=== PATIENT | female | born 1950 | race Caucasian/White ===

== ENCOUNTER 2016-08-16 08:46 | Emergency (ER) | payer MEDICARE, OTHER ==
[~2016-08-16] VITALS: Ht 152.4 cm; Wt 71.8 kg
[2016-08-16 08:57] VITALS: Ht 152.4 cm; Wt 71.8 kg
--- NOTE | 2016-08-16 09:23 | RADRPT ---
PROCEDURE: XR Chest. CLINICAL INDICATION: Trauma, pain TECHNIQUE: Single frontal chest x-ray. COMPARISON: None. FINDINGS: No acute infiltrate, pleural effusion or pneumothorax is identified. Cardiomediastinal silhouette i s within normal limits. Aortic atherosclerotic calcification is noted. The osseous structures are remarkable for degenerative spondylosis of the spine. IMPRESSION: 1. No evidence of acute cardiopulmonary process. 2. Aortic atherosclerosis. RPTAT: EE .Manjit Álvarez MD, MD Date Time Electronically viewed and signed by .Manjit Álvarez MD, on 08/16/2016 09:22 .R/
[2016-08-16] MEDS ORDERED: METO-448 PO (09:25)
[2016-08-16 09:53] LABS: BASOPHILS % 0.4 % (0.0-2.0); EOSINOPHILS # 0.1 10^3/ul (0.0-0.5); EOSINOPHILS % 1.8 % (0.0-7.0); HEMATOCRIT 33.2 % (37.0-47.0); HEMOGLOBIN 11.4 g/dl (12.0-16.0); LYMPHOCYTES # 1.4 10^3/ul (0.8-2.9); LYMPHOCYTES % 27.6 % (15.0-51.0); MEAN CORPUSCULAR HEMOGLOBIN 32.1 pg (29.0-33.0); MEAN CORPUSCULAR HGB CONC 34.3 g/dl (32.0-37.0); MEAN CORPUSCULAR VOLUME 93.6 fl (82.0-101.0); MEAN PLATELET VOLUME 7.2 fl (7.4-10.4); MONOCYTE # 0.5 10^3/ul (0.3-0.9); MONOCYTES % 10.1 % (0.0-11.0); NEUTROPHILS % 60.1 % (39.0-77.0); PLATELET COUNT 214 10^3/UL (140-440); RED BLOOD COUNT 3.55 10^6/ul (4.20-5.40); RED CELL DISTRIBUTION WIDTH 13.4 % (11.5-14.5); UNCORRECTED WBC 5.1 10^3/ul (4.8-10.8); WHITE BLOOD COUNT 5.1 10^3/ul (4.8-10.8)
[2016-08-16 10:03] LABS: CONDITION 1
[2016-08-16 10:05] LABS: CREATININE 5.11 mg/dl (0.44-1.00)
[2016-08-16 10:06] LABS: CALCIUM 9.3 mg/dl (8.4-10.2); INR 1.01; PROTIME 13.3 Sec (12.2-14.2)
[2016-08-16 10:07] LABS: PARTIAL THROMBOPLASTIN TIME 28.9 Sec (25.0-35.0)
--- NOTE | 2016-08-16 10:11 | ERD ---
ER Documentation Chief Complaint Date/Time DATE: 08/16/16 TIME: 10:08 Chief Complaint BROUGHT IN VIA EMS DUE TO LEFT AV SHUNT BLEEDING HPI 66-year-old female brought to the emergency department by ambulance after she was noted to have bleeding from her left upper extremity dialysis fistula. Patient states she completed normal dialysis today. This morning, when she tried to take the bandage off her dialysis graft, she began having bleeding from the shunt. Patient was unable to control the bleeding and the paramedics were called. I have reviewed the therapeutic recreation assistant pre-hospital care. Pre-hospital vital signs were reviewed. Pre-hospital diagnostic tests were reviewed. Upon arrival, patient has no complaints other than the bleeding. ROS All systems reviewed and are negative except as per history of present illness. Medications Home Meds Reported Medications Metoprolol Tartrate* (Lopressor*) 25 Mg Tab, 25 MG PO BID, #60 TAB 08/16/16 Allergies Allergies: Coded Allergies: No Known Allergy (Unverified , 08/16/16) PMhx/Soc History of Surgery: Yes (LEFT ARM AV SHUNT PLACEMENT ) Hx Miscellaneous Medical Probl: Yes (ESRD, DIALSYS ) Hx Alcohol Use: No Hx Substance Use: No Hx Tobacco Use: No Smoking Status: Never smoker FmHx Noncontributory for chief complaint Physical Exam Vitals Vital Signs Date Time Temp Pulse Resp B/P Pulse Ox O2 Delivery O2 Flow Rate FiO2 08/16/16 08:57 98.8 74 18 126/87 100 Physical Exam GENERAL: The patient is well developed and appropriate for usual state of health in no apparent distress HEENT: Pupils equal, round, and reactive to light. EOMI. There is no scleral icterus. NECK: C-spine is soft and supple, there is no meningismus. There is no cervical lymphadenopathy. LUNGS: Clear to auscultation bilaterally. There are no rales, wheezes or rhonchi. HEART: Regular rate and rhythm, no murmurs, clicks, rubs or gallops. ABDOMEN: Soft, non-tender, non-distended. There are bowel sounds in all four quadrants. No rebound or guarding. EXTREMITIES: There is a left upper extremity AV dialysis graft. There are 2 small puncture sites with no further active bleeding noted. There is a normal bruit and thrill. NEURO: The patient moves all four extremities with 5/5 strength. Cranial nerves II - XII are intact. Normal gait. Alert and oriented SKIN: There is no apparent rash or petechiae. HEME/LYMPHATIC: There is no evidence of excessive bruising or lymphedema. PSYCHIATRIC: The patient does not appear anxious or depressed. Result Diagram: 08/16/1640 08/16/16 0940 Results 24 hrs Laboratory Tests Test 08/16/16 09:40 Activated Partial Thromboplast Time 28.9Sec Anion Gap 19 Basophils # 0.010^3/ul Basophils % 0.4% Blood Morphology Comment Blood Urea Nitrogen 25mg/dl Calcium Level 9.3mg/dl Carbon Dioxide Level 34mmol/L Chloride Level 92mmol/L Creatinine 5.11mg/dl Eosinophils # 0.110^3/ul Eosinophils % 1.8% Glucose Level 131mg/dl Hematocrit 33.2% Hemoglobin 11.4g/dl INR International Normalized Ratio 1.01 Lymphocytes # 1.410^3/ul Lymphocytes % 27.6% Mean Corpuscular Hemoglobin 32.1pg Mean Corpuscular Hemoglobin Concent 34.3g/dl Mean Corpuscular Volume 93.6fl Mean Platelet Volume 7.2fl Monocytes # 0.510^3/ul Monocytes % 10.1% Neutrophils # 3.010^3/ul Neutrophils % 60.1% Nucleated Red Blood Cells # 0.010^3/ul Nucleated Red Blood Cells % 0.0/100WBC Platelet Count 69120^3/UL Potassium Level 4.0mmol/L Prothrombin Time 13.3Sec Prothrombin Time Ratio 1.0 Red Blood Count 3.5510^6/ul Red Cell Distribution Width 13.4% Sodium Level 141mmol/L White Blood Count 5.110^3/ul Procedures/MDM Patient was taken to a room, seen and evaluated. Comfort measures were initiated. Diagnostic tests were ordered and reviewed. Procedure: Wound care A hemostatic pressure dressing was applied. Patient was then monitored for approximately 45 minutes with no further bleeding. Patient tolerated the procedure without difficulty. REEVALUATION: Patient continued to have no further bleeding. MEDICAL DECISION MAKIN-year-old female presents to the emergency department with dialysis shunt bleeding. At this time, the bleeding is been easily controlled and the shunt appears to be a normal working condition. Her blood tests indicate no significant hemorrhage or life-threatening need for blood transfusion. At this time, patient appears to be clinically well and appropriate for outpatient care. Departure Diagnosis: Primary Impression: Bleeding from dialysis shunt Condition: Stable Patient Instructions: Dialysis Shunt (Fistula) Bleeding Additional Instructions: Please speak with your dialysis provider and let them know that this happened. Return for any problems or concerns ION KOCH Aug 16, 2016 10:11
[2016-08-16 10:44] VITALS: BP 122/80; PULSE 69; RESP 18; TEMP 98.8
== END 2016-08-16 10:52 | disposition home or self-care (01) ==
LOC: E/R 08:46
DX: T82.838A Hemorrhage due to vascular prosthetic devices, implants and grafts, initial encounter (principal); N18.6 End stage renal disease; Y82.8 Other medical devices associated with adverse incidents; Z99.2 Dependence on renal dialysis
CPT/HCPCS: 71010; 80048; 85025; 85610; 85730